=== PATIENT | male | born 1975 | race African-American/Black ===

== ENCOUNTER 2018-09-14 12:48 | Observation (INO) | payer MEDICAID ==
[~2018-09-14] VITALS: Ht 165.1 cm; Wt 95.6 kg
[2018-09-14] MEDS ORDERED: ASPIRIN 81 MG TABLET CHEW ONE (13:07)
[2018-09-14] MEDS ORDERED: SODIUM CHLORIDE FLUSH 10ML SYR IVF ONE (13:30)
[2018-09-14] MEDS ORDERED: ASPIRIN 81 MG TABLET CHEW PO ONE (13:30)
[2018-09-14] MEDS ORDERED: METF500T17 PO (13:47)
[2018-09-14] MEDS ORDERED: AMLO10TA6 PO (13:47)
[2018-09-14] MEDS ORDERED: TRAM50TA2 PO (13:47)
[2018-09-14] MEDS ORDERED: GLIP10TA13 PO (13:47)
[2018-09-14] MEDS ORDERED: LISI-170 PO (13:47)
[2018-09-14 13:52] LABS: BASOPHILS # (AUTO) 0.02 x10^3/uL (0-0.1); BASOPHILS % (AUTO) 0 % (0-1); EOSINOPHILS # (AUTO) 0.24 x10^3/uL (0-0.4); EOSINOPHILS % (AUTO) 3 % (1-7); LYMPHOCYTES # (AUTO) 1.69 x10^3/uL (1-3.4); LYMPHOCYTES % (AUTO) 20 % (22-44); MD NO; MEAN CORPUSCULAR HEMOGLOBIN 31.6 pg (27.5-34.5); MEAN CORPUSCULAR HGB CONC 34.7 g/dL (33.2-36.2); MEAN CORPUSCULAR VOLUME 91.1 fL (81-97); MEAN PLATELET VOLUME 7.9 fL (7.4-10.4); MONOCYTES # (AUTO) 0.52 x10^3/uL (0.2-0.8); MONOCYTES % (AUTO) 6 % (2-9); NEUTROPHILS # (AUTO) 6.01 x10^3/uL (1.8-6.8); NEUTROPHILS % (AUTO) 71 % (42-75); PLATELET COUNT 372 x10^3/uL (130-400); RED BLOOD COUNT 4.64 x10^6/uL (4.38-5.82); RED CELL DISTRIBUTION WIDTH 13.8 % (9.4-14.8)
[2018-09-14] MEDS ORDERED: APAP/CODEINE 300/30MG TABLET PO PRN (14:00)
[2018-09-14 14:02] LABS: ALANINE AMINOTRANSFERASE 101 U/L (12-78); ALBUMIN 3.6 g/dL (3.4-5.0); ANION GAP 5 mmol/L (5-15); CALCIUM 8.9 mg/dL (8.5-10.1); CHLORIDE 107 mmol/L (98-107); CREATININE 0.91 mg/dL (0.7-1.3)
[2018-09-14 14:03] LABS: INTERNATIONAL NORMALIZED RATIO 0.97 (0.93-1.1); PROTHROMBIN TIME 10.3 Seconds (9.6-11.5)
[2018-09-14 14:07] LABS: ALKALINE PHOSPHATASE 131 U/L (45-117); BILIRUBIN,TOTAL 0.3 mg/dL (0.2-1.0); TOTAL PROTEIN 7.2 g/dL (6.4-8.2); TROPONIN I < 0.015 ng/mL (0.000-0.045)
[2018-09-14] MEDS ORDERED: APAP/CODEINE 300/60MG TABLET PO PRN (14:30)
[2018-09-14] MEDS ORDERED: AMLODIPINE 5 MG TABLET PO ONE (15:00)
[2018-09-14] MEDS ORDERED: NITROGLYCERIN 0.4 MG BOTTLE (25 TABS) SL PRN (15:00)
[2018-09-14] MEDS ORDERED: DEXTROSE 50%, 50ML SYRINGE IVPush PRN (15:00)
[2018-09-14] MEDS ORDERED: ACETAMINOPHEN 325 MG TABLET PO PRN (15:00)
[2018-09-14] MEDS ORDERED: morphine SULFATE 10 MG/ML, 1ML IV PRN (15:00)
[2018-09-14] MEDS ORDERED: hydrALAzine 20 MG/ML, 1ML IVPush PRN (15:00)
[2018-09-14] MEDS ORDERED: IBUPROFEN 600 MG TABLET PO PRN (15:00)
[2018-09-14] MEDS ORDERED: DEXTROSE 4 GM TAB.CHEW PO PRN (15:00)
[2018-09-14] MEDS ORDERED: ONDANSETRON 2MG/ML, 2ML IVPush PRN (15:00)
[2018-09-14] MEDS ORDERED: ONDANSETRON ODT 4 MG PO PRN (15:00)
[2018-09-14] MEDS ORDERED: GLUCAGON 1 MG IM PRN (15:00)
[2018-09-14] MEDS ORDERED: LISINOPRIL 20 MG TABLET PO ONE (15:00)
[2018-09-14] MEDS ORDERED: NITROGLYCERIN 0.4 MG/SPRAY SL PRN (15:00)
[2018-09-14] MEDS ORDERED: NICOTINE 14MG/24 HR PATCH.TD24 TD ONE (15:00)
[2018-09-14 15:37] LABS: HEMOGLOBIN A1C 8.6 % (4.2-6.3)
[2018-09-14] MEDS: OXYcodone IR 5MG TABLET PO PRN ×2 (15:49→21:07)
[2018-09-14 16:00] VITALS: BP 166/83
[2018-09-14] MEDS: INSULIN LISPRO 100 UNITS/ML, PEN SQ-INSULIN SCH ×2 (16:41→21:50)
[2018-09-14] MEDS ORDERED: ALBU8.5H8 INH (17:44)
[2018-09-14] MEDS ORDERED: AMLO-150 PO (17:44)
[2018-09-14] MEDS: ORAJEL 7GM TUBE MM PRN (17:59)
[2018-09-14 18:39] LABS: TROPONIN I 0.021 ng/mL (0.000-0.045)
[2018-09-14 20:42] VITALS: BP 155/81
[2018-09-14] MEDS ORDERED: metFORMIN 500 MG TABLET PO SCH (21:00)
[2018-09-14] MEDS ORDERED: INSULIN GLARGINE 100 UNITS/ML, PEN SQ-INSULIN SCH (21:00)
[2018-09-14] MEDS ORDERED: ATORVASTATIN 40 MG TABLET PO SCH (21:00)
[2018-09-14] MEDS: SODIUM CHLORIDE FLUSH 10ML SYR IVF SCH ×2 (21:07)
[2018-09-15 01:48] LABS: TROPONIN I 0.017 ng/mL (0.000-0.045)
[2018-09-15 03:30] VITALS: BP 112/69
[2018-09-15] MEDS: OXYcodone IR 5MG TABLET PO PRN ×2 (04:01→08:39)
[2018-09-15] MEDS: ORAJEL 7GM TUBE MM PRN ×2 (04:01→11:35)
[2018-09-15] MEDS ORDERED: ASPIRIN 325 MG TABLET EC PO SCH (06:00)
[2018-09-15 06:42] VITALS: BP 142/78
[2018-09-15 06:46] LABS: CHOL/HDL RATIO 2.2; CHOLESTEROL, TOTAL 132 mg/dL (140-239); HDL CHOL % 45 % (26-37); HDL CHOLESTEROL (DIRECT) 60 mg/dL (40-60); LDL CHOLESTEROL,CALCULATED 60 mg/dL (54-169); TRIGLYCERIDES 62 mg/dL (50-200); TROPONIN I 0.019 ng/mL (0.000-0.045); VLDL CHOLESTEROL 12 mg/dL (0-25)
[2018-09-15] MEDS: INSULIN LISPRO 100 UNITS/ML, PEN SQ-INSULIN SCH ×2 (07:00→11:36)
[2018-09-15] MEDS: SODIUM CHLORIDE FLUSH 10ML SYR IVF SCH ×2 (08:32→08:34)
[2018-09-15] MEDS ORDERED: LISINOPRIL 20 MG TABLET PO SCH (09:00)
[2018-09-15] MEDS ORDERED: AMLODIPINE 10 MG TAB PO SCH (09:00)
[2018-09-15] MEDS ORDERED: REGADENOSON 0.4 MG/5 ML SYRINGE ONE (09:22)
[2018-09-15 12:34] VITALS: BP 138/76
[2018-09-15] MEDS ORDERED: BENZ7GEL3 MM (13:29)
[2018-09-15] MEDS ORDERED: GLIP10TA13 PO (13:29)
[2018-09-15] MEDS ORDERED: AMLO-150 PO (13:29)
[2018-09-15] MEDS ORDERED: ATOR40TA78 PO (13:29)
== END 2018-09-15 17:00 | disposition home or self-care (01) ==
LOC: ED 13:57 → EDIP 14:23 → 5SO 15:23
PROVIDERS: ADMIT Internal Medicine; ATTEND Internal Medicine
DX: R07.89 Other chest pain (principal); I42.9 Cardiomyopathy, unspecified; J45.909 Unspecified asthma, uncomplicated; I10 Essential (primary) hypertension; E78.5 Hyperlipidemia, unspecified; E66.9 Obesity, unspecified; E11.9 Type 2 diabetes mellitus without complications; K08.89 Other specified disorders of teeth and supporting structures; F17.210 Nicotine dependence, cigarettes, uncomplicated; Z79.84 Long term (current) use of oral hypoglycemic drugs
CPT/HCPCS: 36415; 71045; 78452; 80053; 80061; 82962; 83036; 83690; 84484; 85025; 85610; 85730; 93005; 93017; 93306; 96372; 99284; A9502; C9898; G0378; J1815; J2785

== ENCOUNTER 2018-09-26 17:11 | Emergency (ER) | payer MEDICARE, MEDICAID ==
[~2018-09-26] VITALS: Ht 165.1 cm; Wt 96.7 kg
[~2018-09-26 17:11] MED LIST: ALBU8.5H8 INH; AMLO-150 PO; AMLO10TA6 PO; ATOR40TA78 PO; BENZ7GEL3 MM; GLIP10TA13 PO; LISI-170 PO; METF500T17 PO; TRAM50TA2 PO
[2018-09-26 17:17] VITALS: BP 182/63
[2018-09-26] MEDS ORDERED: KETOROLAC 30 MG/1 ML IM/IV ONE (17:30)
[2018-09-26] MEDS ORDERED: KETOROLAC 30 MG/1 ML ONE (17:34)
== END 2018-09-26 18:19 | disposition home or self-care (01) ==
LOC: ED 18:10
DX: K08.89 Other specified disorders of teeth and supporting structures (principal); H66.91 Otitis media, unspecified, right ear; E78.00 Pure hypercholesterolemia, unspecified; E11.9 Type 2 diabetes mellitus without complications; I10 Essential (primary) hypertension; J45.909 Unspecified asthma, uncomplicated; Z87.891 Personal history of nicotine dependence
CPT/HCPCS: 96372; 99283; J1885

== ENCOUNTER 2018-09-26 22:15 | Emergency (ER) | payer MEDICAID, MEDICARE ==
[~2018-09-26] VITALS: Ht 165.1 cm; Wt 95.8 kg
--- NOTE | 2018-09-26 22:41 | NUR ---
PT PLACED ON MONITORING EQUIPMENT. ALL VITALS STABLE. PT IN NAD
[2018-09-26] MEDS ORDERED: ASPIRIN 81 MG TABLET CHEW PO ONE (23:30)
--- NOTE | 2018-09-26 23:37 | NUR ---
XRAY AT BEDSIDE
[2018-09-27] MEDS ORDERED: ASPIRIN 81 MG TABLET CHEW ONE (00:10)
[2018-09-27 00:11] LABS: BASOPHILS # (AUTO) 0.04 x10^3/uL (0-0.1); BASOPHILS % (AUTO) 0 % (0-1); EOSINOPHILS # (AUTO) 0.23 x10^3/uL (0-0.4); EOSINOPHILS % (AUTO) 2 % (1-7); LYMPHOCYTES # (AUTO) 2.03 x10^3/uL (1-3.4); LYMPHOCYTES % (AUTO) 20 % (22-44); MD NO; MEAN CORPUSCULAR HEMOGLOBIN 31.4 pg (27.5-34.5); MEAN CORPUSCULAR HGB CONC 34.2 g/dL (33.2-36.2); MEAN CORPUSCULAR VOLUME 91.9 fL (81-97); MEAN PLATELET VOLUME 7.9 fL (7.4-10.4); MONOCYTES # (AUTO) 0.71 x10^3/uL (0.2-0.8); MONOCYTES % (AUTO) 7 % (2-9); NEUTROPHILS # (AUTO) 6.95 x10^3/uL (1.8-6.8); NEUTROPHILS % (AUTO) 70 % (42-75); PLATELET COUNT 367 x10^3/uL (130-400); RED BLOOD COUNT 4.53 x10^6/uL (4.38-5.82); RED CELL DISTRIBUTION WIDTH 14.4 % (9.4-14.8)
--- NOTE | 2018-09-27 00:12 | NUR ---
PT MEDICATED PER EMAR. 5 RIGHTS ADDRESSED. AWAITING TEST RESULTS AT THIS TIME. WILL CONTINUE TO MONITOR. PT DENIES ANY NEEDS AT THIS TIME. CALL LIGHT WITHIN REACH.
[2018-09-27 00:25] LABS: ALANINE AMINOTRANSFERASE 89 U/L (12-78); ALBUMIN 3.6 g/dL (3.4-5.0); ANION GAP 5 mmol/L (5-15); CALCIUM 8.7 mg/dL (8.5-10.1); CHLORIDE 108 mmol/L (98-107); CREATININE 1.14 mg/dL (0.7-1.3)
[2018-09-27 00:30] LABS: ALKALINE PHOSPHATASE 121 U/L (45-117); BILIRUBIN,TOTAL 0.4 mg/dL (0.2-1.0); TOTAL PROTEIN 6.9 g/dL (6.4-8.2); TROPONIN I 0.032 ng/mL (0.000-0.045)
--- NOTE | 2018-09-27 00:35 | NUR ---
CHART UP FOR RECHECK
--- NOTE | 2018-09-27 01:26 | NUR ---
Break RN: patient discharged with prescription and instruction. verbalized understanding.
[2018-09-27 01:27] VITALS: BP 155/91
== END 2018-09-27 01:30 | disposition home or self-care (01) ==
LOC: ED 23:26
DX: M94.0 Chondrocostal junction syndrome [Tietze] (principal); R07.89 Other chest pain; K08.89 Other specified disorders of teeth and supporting structures; J45.909 Unspecified asthma, uncomplicated; I10 Essential (primary) hypertension; E78.00 Pure hypercholesterolemia, unspecified; E11.9 Type 2 diabetes mellitus without complications; F17.210 Nicotine dependence, cigarettes, uncomplicated
CPT/HCPCS: 36415; 71045; 80053; 84484; 85025; 99284